=== PATIENT | female | born 1925 | race Caucasian/White ===

== ENCOUNTER 2016-09-06 13:56 | Emergency (ER) | payer MEDICARE, OTHER ==
[~2016-09-06 13:56] MED LIST: AMBIEN PO; ANTACID650 MG PO; ANUSOL SUPP1 SUPP; ASPERDRINK81 MG PO; ASPIRIN PO; ASPIRIN81 M2 PO; AVANDIA PO; AZASITE; B COMPLEX1 CA1 PO; BENICAR HCT 20-1 TA1 PO; BENZONATATE PO; BONIVA150 MG PO; BYSTOLIC10 MG PO; CALCIUM + D 6001 TA1 PO; CALTRATE PLUS T1 TAB PO; CARAFATE PO; CARAFATE1 G; CARDIZEM SR PO; CENTRUM SILVER PO; CLARITIN10 MG PO; CLOPIDOGREL75 MG PO; COREG3.125 MG PO; EDLUAR5 MG PO; FERREX 150 FOR1 EACH PO; FERROUS SULFATE PO; FLAGYL PO; FLAGYL250 MG PO; GLUCOTROL PO; HYDRALAZINE HC100 MG PO; IMDUR-ER30 M1; IRON325 ( 651 PO; JANUVIA; JANUVIA PO; LAMISIL PO; LASIX PO; LASIX20 MG PO; LEVAQUIN PO; LEVEMIR SUBQ; LEVEMIR100 U/ML SUBQ; LISINOPRIL PO; LISINOPRIL2.5 MG PO; LOMOTIL WHITE2.5 MG PO; LOPID600 MG PO; LOSARTAN POTASS25 MG PO; MOTION SICKNESS25 M5 PO; MOXIFLOXACIN; MULTIVITAMIN1 UDCAP PO; NIFEREX-150 CAP1 CAP PO; NITROGLYGERIN0.4 MG SL; NORVASC10 MG PO; PANTOPRAZOLE SO40 MG PO; PHENERGAN; PHENERGAN PR; PRILOSEC PO; PROTONIX PO; REGLAN PO; SODIUM BICARBO650 MG PO; SYNTHROID PO; SYNTHROID0.05 MG PO; TAZTIA XT240 MG PO; TIAZAC360 MG PO; VIT E PO; VITAMIN D1000 UNIT PO; VITAMIN D31000 UNIT PO; VITAMIN E100 UNIT PO; XYZAL; ZOFRAN PO; ZOLPIDEM TARTRAT5 MG PO
== END 2016-09-06 13:59 | disposition home or self-care (01) ==
LOC: SED 13:56
DX: S60.222A Contusion of left hand, initial encounter (principal); I10 Essential (primary) hypertension; Z88.5 Allergy status to narcotic agent; Z79.899 Other long term (current) drug therapy; X58.XXXA Exposure to other specified factors, initial encounter; Y92.830 Public park as the place of occurrence of the external cause
CPT/HCPCS: 99283

== ENCOUNTER → 2016-09-22 | Outpatient (CLI) | payer MEDICARE, OTHER ==
--- NOTE | ~2016-09-22 | US37 ---
[facility] A Service of [facility] & [facility] RADIOLOGY TEXT RESULTS PATIENT: IAN ALMONTE LOCATION: CNIV : [birth year] UNIT #: [id number] AGE: [address]: SYLVESTER QUIROZ APRN SEX: F ORDER DR: [id number] [facility] [address] [place], [place] [address] [id number] O MR#: [id number] Acc #: [id number] NAME: IAN ALMONTE. : 1925 SEX: F STUDY DATE/TIME: 09/22/2016 10:24 UNIT: CNIV ROOM: STUDY DESCRIPTION: US Carotid W/Doppler Bilateral Attending Physician: Sylvester Quiroz Aprn Referring Physician: Sylvester Quiroz Aprn Ordering Physician: Sylvester Quiroz Aprn Primary Care Physician: Kimberly Holman M.D. MEDICAL IMAGING REPORT This report is preliminary unless electronic signature is present EXAM Carotid duplex scan, 09/22/2016 HISTORY Carotid stenosis. FINDINGS The right common carotid artery has no significant plaque. There is heterogeneous plaque in the right carotid bulb which extends up into the proximal internal carotid artery. Peak systolic velocity in the distal right internal carotid artery is 141 cm/sec with an end-diastolic velocity of 37 cm/sec. The ICA/CCA ratio on the right is 1.05. Peak systolic velocity in the right external carotid artery is 98 cm/sec. The right vertebral artery is patent with antegrade flow. The left common carotid artery has no significant plaque. There is heterogeneous plaque in the left carotid bulb which extends up into the proximal internal carotid artery. Peak systolic velocity in the mid left internal carotid artery is 156 cm/sec with an end-diastolic velocity of 29 cm/sec. The ICA/CCA ratio on the left is 1.54. Peak systolic velocity in the left external carotid artery is 88 cm/sec. The left vertebral artery is patent with antegrade flow. IMPRESSION Moderate stenosis (50% to 69%) in the internal carotid arteries bilaterally. No significant stenosis of the external carotid arteries on either side. Patent vertebral arteries bilaterally with antegrade flow. Dictated by... Endy Cole M.D. THIS IS AN ELECTRONICALLY VERIFIED REPORT [facility] A Service of [facility] & [facility] RADIOLOGY TEXT RESULTS PATIENT: IAN ALMONTE LOCATION: CNIV : [birth year] UNIT #: [id number] AGE: [address]: SYLVESTER QUIROZ EXPERIENCE SPECIALIST SEX: F ORDER DR: Endy Cole M.D. at 09/23/2016 7:32 AM [place] TD: 09/22/2016 15:44 JOB #: [id number] MEDICAL IMAGING REPORT Page 1 of 1 COPY
== END | disposition home or self-care (01) ==
LOC: CNIV 09:59
DX: I65.23 Occlusion and stenosis of bilateral carotid arteries (principal)
CPT/HCPCS: 93880